=== PATIENT | male | born 1955 | race Caucasian/White ===

== ENCOUNTER 2022-03-04 14:57 | Emergency (ER) | payer MEDICARE, SELFPAY ==
--- NOTE | ~2022-03-04 | XR_ITS ---
EXAMINATION: XR wrist LT min 3V DATE: 03/04/2022 15:35 INDICATION: Medial left wrist pain radiating to the fifth digit. TECHNIQUE: Posteroanterior, ulnar deviation, oblique, and lateral views of the left wrist were obtain ed. COMPARISON: none FINDINGS: Alignment is normal. No fracture. 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 Subarticular cyst at the ulnar madeleine e of the proximal articular surface of the lunate location suspicious for ulnocarpal impaction althou gh ulnar variance appears neutral. IMPRESSION: 1. 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 2. Cystic change at the lunate location suggestive of ulnocarpal impaction. Reviewed, dictated and finalized at location A.
[2022-03-04 15:13] VITALS: BP 137/53; PULSE 78; RESP 16; TEMP 36.6; O2SAT 99
--- NOTE | 2022-03-04 16:37 | ED.GENADULT ---
HPI - General Adult General Chief complaint: Extremity Injury, Upper Stated complaint: left wrist pain and swelling Time Seen by Provider: 03/04/22 15:20 Source: patient Mode of arrival: ambulatory Limitations: no limitations History of Present Illness HPI narrative: Patient is a 66 y/o R hand dominant male who presents to the ED with c/o L wrist pain. Patient reports he was working with his horse today when the horse became spooked , knocking him to the ground. He states he fell onto his L side. No HI, LOC. Denied any significant injury, but began having pain and swelling in his L wrist a few hours later, prompting him to come to the ED. Pain worse over carpal bones, 1st/5th proximal metacarpals. Patient has not taken anything for pain. Denies any L elbow, shoulder, or hip pain. No numbness/tingling, weakness. Related Data Allergies Allergy/AdvReac Type Severity Reaction Status Date / Time No Known Allergies Allergy Verified 03/04/22 15:20 Review of Systems Review of Systems: CONSTITUTIONAL: Denies fever. SKIN: Reports swelling to L wrist. MUSCULOSKELETAL: Reports pain to L wrist. Denies back pain, L hip/shoulder/elbow pain. NEUROLOGIC: Denies HI, LOC, numbness, tingling, or weakness. All systems reviewed & are unremarkable except as noted in HPI and below PMFSH Past Medical History Medical History (Updated 03/04/22 @ 16:45 by Kellie Mak PA-C) Hypothyroid Type 2 diabetes mellitus without complication, without long-term current use of insulin Surgical History Surgical History History of arthroscopy of left knee History of left inguinal hernia repair Family History Family History Father Family history of cardiovascular disease Mother Family history of malignant neoplasm Social History Social History Smoking status: Never smoker Second hand tobacco smoke exposure: No Alcohol intake: never Substance use: never Substance use type: does not use Spiritual care concerns: No Agree to blood products: Yes Exam Narrative: GENERAL: Well appearing, well-nourished, non-toxic, in no acute distress. HEAD: Normocephalic, atraumatic. NECK: Supple. No adenopathy, no masses. RESPIRATORY: Airway patent, respirations nonlabored. CARDIOVASCULAR: Regular rate and rhythm without murmurs, rubs, or gallops. Radial pulses 2+ and equal bilaterally. MUSCULOSKELETAL: Moves all extremities. Strength intact without gross deformities. Mild diffuse swelling to L dorsal wrist. Significant limited flexion of L wrist due to pain, mild limitation to L wrist extension. TTP over proximal L 1st and 5th metacarpals. TTP diffusely over carpal bones, worst medially. Minimal anatomic snuff box tenderness, more tenderness medially. No TTP over L elbow, L shoulder. Full nonpainful ROM of L elbow/shoulder. SKIN: Warm, dry, normal color. No rashes. NEURO: A&O X3. Speech clear. Cranial nerves II-XII grossly intact. Steady gait. No ataxic movements. PSYCHIATRIC: Appropriate mood and affect. Normal interaction. Course Vital Signs Vital signs: Vital Signs Temperature 97.8 F 03/04/22 15:13 Pulse Rate 78 03/04/22 15:13 Respiratory Rate 16 03/04/22 15:13 Blood Pressure 137/53 L 03/04/22 15:13 Pulse Oximetry 99 03/04/22 15:13 Oxygen Delivery Room Air 03/04/22 15:13 Temperature 97.8 F 03/04/22 15:13 Pulse Rate 78 03/04/22 15:13 Respiratory Rate 16 03/04/22 15:13 Blood Pressure 137/53 L 03/04/22 15:13 Pulse Oximetry 99 03/04/22 15:13 Oxygen Delivery Room Air 03/04/22 15:13 Medical Decision Making [facility] Narrative Medical decision making narrative: Patient presented to ED with report of left wrist pain and swelling s/p injury w/ horse. Swelling dorsally, tenderness and motor proximal first and fifth metacarpals, and carpal bones. X-ra
== END 2022-03-04 17:07 | disposition home or self-care (01) ==
PROVIDERS: Emergency Provider Emergency Medicine; PCP Family Medicine
DX: S69.92XA Unspecified injury of left wrist, hand and finger(s), initial encounter (principal); E11.9 Type 2 diabetes mellitus without complications; E03.9 Hypothyroidism, unspecified; M19.032 Primary osteoarthritis, left wrist; W55.12XA Struck by horse, initial encounter; Z79.84 Long term (current) use of oral hypoglycemic drugs
CPT/HCPCS: 29125; 73110; 99283